=== PATIENT | female | born 1995 | race Caucasian/White ===

== ENCOUNTER 2017-10-09 21:10 | Emergency (ER) | payer BC ==
[2016-09-15 09:54] VITALS: BMI 32.8
[~2017-10-09 21:10] MED LIST: IBUPROFEN600 MG PO; PERCOCET 5-3251 TAB PO; PRENATAL COMPLE1 TAB PO
[2017-10-09 22:25] LABS: BASOPHILS 0.1 % (0-2); EOSINOPHILS 2.7 % (0-7); HEMATOCRIT 41.3 % (36.0-48.0); IMMATURE GRANULOCYTES 0.3 % (0-5); LYMPHOCYTES 26.3 % (15-50); MCH 29.9 pg (26.0-34.0); MCHC 33.9 g/dL (31.0-37.0); MCV 88.1 fL (80.0-100.0); MEAN PLATELET VOLUME 9.5 fL (7.4-10.4); MONOCYTES 6.1 % (2-11); NEUTROPHILS 64.5 % (40-80); RBC 4.69 10x6/uL (4.00-5.40); RDW 12.4 % (11.5-14.5); WBC 15.3 10x3/uL (4.8-10.8)
[2017-10-09 22:36] LABS: PLATELET COUNT 370 10x3/uL (130-400)
== END 2017-10-09 22:04 | disposition home or self-care (01) ==
LOC: D.ER 21:10
PROVIDERS: Physician Assistant Medical
DX: J20.9 Acute bronchitis, unspecified (principal); F17.200 Nicotine dependence, unspecified, uncomplicated